=== PATIENT | female | born 1970 | race Caucasian/White ===

== ENCOUNTER 2016-11-06 15:55 | Emergency (ER) | payer OTHER ==
[~2016-11-06] VITALS: Ht 165.1 cm; Wt 64.4 kg
[2016-11-06] MEDS ORDERED: PREDNISONE10 M2 PO (16:02)
[2016-11-06] MEDS ORDERED: CARISOPRODOL350 M1 PO (16:02)
[2016-11-06] MEDS ORDERED: ACETAMINOPHEN-1 EAC3 PO (16:02)
[2016-11-06] MEDS ORDERED: AMRIX15 M1 PO (16:03)
[2016-11-06] MEDS ORDERED: DULOXETINE HCL60 MG PO (16:03)
[2016-11-06] MEDS ORDERED: PERCOCET 5-3251 EACH PO (17:32)
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
[2016-11-06 17:39] VITALS: BP 117/84
== END 2016-11-06 17:43 ==
LOC: ERH 15:55
DX: M54.12 Radiculopathy, cervical region (principal)
CPT/HCPCS: 96372; J1885